=== PATIENT | male | born 1965 | race Caucasian/White ===

== ENCOUNTER → 2018-02-20 | Outpatient (CLI) | payer OTHER ==
[~2018-02-20] MED LIST: ASPIRIN 81M81 MG/TA2 PO; DEMEROL 50M50 MG/TAB PO
== END ==
LOC: COL.RAD 09:52
DX: M25.552 Pain in left hip (principal)
CPT/HCPCS: J3301

== ENCOUNTER 2018-03-26 15:00 | Outpatient (RCR) | payer OTHER | END 2018-05-24 | disposition home or self-care (01) | LOC: MKS.ESL.PT | DX: M25.552 Pain in left hip (principal) ==